=== PATIENT | male | born 1950 | race Caucasian/White ===

== ENCOUNTER 2024-10-14 04:16 | Emergency (ER) | payer OTHER, SELFPAY ==
[2024-10-14] VITALS (11 sets, daily range): BP systolic 123–183; BP diastolic 73–103; PULSE 53–76; RESP 14–19; TEMP 36.6–37.1; O2SAT 95–96; BMI 17.6
--- NOTE | 2024-10-14 04:40 | XR_ITS ---
Examination: CT brain head without contrast. 2-D sagittal coronal reconstructions Date and time of exam:October 14, 2024 0455 hrs. Indications: High blood pressure with severe headaches today CTDI: vol (mGy):54.60 DLP: (mGycm):1158 Technique: Multiple CT axial sections of the brain have been obtained, 5 mm slice thickness. Contrast has not been administered. 2-D sagittal, coronal reconstructions have been obtained Low dose protocols were performed. One or more of the following dose reduction techniques were used; automated exposure control, adjustment of the mA and/or KV according to patient size, use of iterative reconstruction technique. Findings: No significant ventricular enlargement. Intra-axial or extra-axial hemorrhage density is not seen. No mass effect or midline shift Basal cisterns are not remarkable. Fourth ventricle is midline. Cranial vault intact. Impression: Negative for acute hemorrhage, mass effect or midline shift
--- NOTE | 2024-10-14 04:40 | EKG_ITS ---
[facility] Test Date: 2024-10-14 Pat Name: FLOR AZUL Department: Room: - Gender: Male Reception Clerk: : 1950 Requested By: Mayito Cortes Order Number: [id number] Reading MD: Mayito Cortes Measurements Intervals [place] Rate: 60 P: 59 [place]: 229 QRS: -34 QRSD: 89 T: 45 QT: 395 QTc: 398 Interpretive Statements SINUS RHYTHM WITH FIRST DEGREE AV BLOCK MARKED LEFT AXIS DEVIATION [QRS AXIS < -30] Compared to ECG 08/02/2024 11:33:18 Sinus bradycardia no longer present /store/S0/[id number]/ecg/[id number].pdf
--- NOTE | 2024-10-14 04:40 | XR_ITS ---
Examination: PA chest single view Technique: Upright PA chest single view Exam date and time: October 14, 2024 0446 hrs. Indications: Onset chest pain back pain shortness of breath today Findings: Normal heart size Lungs are clear The osseous structures are intact Impression: No active disease
--- NOTE | 2024-10-14 04:41 | EDRME_ITS ---
Rapid Medical Screening Exam [facility] Arrival date/time: 10/14/24 04:16 74M with history of BPH presents to ED with 1 day of elevated BP (patient usually has normal BP and does not take meds), as well as HAUSER and back pain w/o fall/trauma. Patient has also had several days of constipation, which patient tried to relieve with fiber supplements w/o success. Patient also had some nausea, but denies vomiting, ab surgeries and dysuria. Patient notes he recently traveled abroad. Chief Complaint: General Adult/Misc Complain Vital signs: Vital Signs Temperature 97.8 F 10/14/24 04:22 Pulse Rate 60 10/14/24 04:22 Respiratory Rate 18 10/14/24 04:22 Blood Pressure 173/103 H 10/14/24 04:22 Pulse Oximetry (%) 96 10/14/24 04:22 Oxygen Delivery Method Room Air 10/14/24 04:22
--- NOTE | 2024-10-14 05:17 | PRELIM_ITS ---
CT scan of the head without intravenous contrast (axial sections with sagittal and coronal reformats) October 14, 2024 0455 hours Clinical history: HAUSER and elevated BP Findings:There is no evidence of i ntracranial hemorrhage, mass effect or midline shift. There are periventricular white matter hypodens ities, compatible with chronic small vessel ischemia. There is mild volume loss. There is atheromatou s calcification of the intracranial arteries. The calvarium is unremarkable. There is mild mucosal th ickening in the bilateral ethmoid and maxillary sinuses. The mastoid air cells and the other visuali zed paranasal sinuses are clear.Impression:No evidence of intracranial hemorrhage, mass effect or mid line shift.Periventricular chronic small vessel ischemia and volume loss. Report Electronically Venus d By: Jimmie Amanda 10/14/2024 5:16:27 AM [EST]
[2024-10-14 05:22] LABS: Basophils # (Auto) 0.1 Thou/mm3 (0.0-0.2); Basophils % (Auto) 1 % (0-2.5); Eosinophils # (Auto) 0.3 Thou/mm3 (0.0-0.5); Eosinophils % (Auto) 4 % (0-10); Immature Granulocytes % (Auto) 0 % (0-0); Monocytes # (Auto) 0.7 Thou/mm3 (0.0-0.8); Monocytes % (Auto) 10 % (0-12); Nucleated Red Blood Cell % 0 /100 WBC (0)
[2024-10-14 05:24] LABS: Hematocrit 43.5 % (41.0-53.0); Hemoglobin 15.1 g/dL (13.5-16.0); Immature Granulocytes Auto 0.02 Thou/mm3 (0.00-0.00); Lymphocytes # (Auto) 1.6 Thou/mm3 (1.0-4.8); Lymphocytes % (Auto) 23 % (10-50); Mean Corpuscular HGB Conc 34.7 g/dl (31.0-37.0); Mean Corpuscular Volume 87 fL (80-100); Neutrophils # (Auto) 4.2 Thou/mm3 (1.8-7.7); Neutrophils % (Auto) 62 % (37-80); Platelet Count 137 Thou/mm3 (140-440); RDW Standard Deviation 42.6 fL (35.1-43.9); Red Blood Count 5.03 Miln/mm3 (4.50-5.90); White Blood Count 6.9 Thou/mm3 (3.8-10.6)
[2024-10-14 05:41] LABS: Alanine Aminotransferase 15 U/L (10-49); Albumin, Serum 4.6 gm/dL (3.4-4.8); Albumin/Globulin Ratio 1.7 (1.2-2.2); Alkaline Phosphatase 57 U/L (46-116); Anion Gap 4 (7-16); Aspartate Amino Transferase 18 U/L (0-34); BUN/Creatinine Ratio 10 Ratio (12-20); Bilirubin,Total 1.7 mg/dL (0.3-1.2); Blood Urea Nitrogen 10 mg/dL (9-23); Calcium 9.6 mg/dL (8.3-10.6); Calcium (Corrected) 9.6 mg/dL (8.5-10.1); Carbon Dioxide 30.5 mMol/L (20.0-31.0); Chloride 104 mMol/L (98-107); Globulin 2.7 gm/dL (2.3-3.5); Glucose 130 mg/dL (74-106); Osmolality,Calculated 276 (275-295); Potassium 4.2 mMol/L (3.4-5.1); Sodium 138 mMol/L (136-145); Total Protein 7.3 gm/dL (5.7-8.2); Troponin I < 0.020 ng/mL (0.0-0.045); eGFR > 60 See Note
--- NOTE | 2024-10-14 06:19 | PD.EDADULT ---
ED General RME/HPI General Chief complaint: General Adult/Misc Complain Stated complaint: HIGH BP, HEADACHE, CONSTIPATION Time Seen by Provider: 10/14/24 06:21 Arrival date/time: 10/14/24 04:16 RME / HPI RME / HPI narrative: 10/14/24 04:16 74M with history of BPH presents to ED with 1 day of elevated BP (patient usually has normal BP and does not take meds), as well as HAUSER and back pain w/o fall/trauma. Patient has also had several days of constipation, which patient tried to relieve with fiber supplements w/o success. Patient also had some nausea, but denies vomiting, ab surgeries and dysuria. Patient notes he recently traveled abroad. This section includes all my notes and documentations, including HPI, PE, MDM, Procedure Notes, and PLAN. Edwar Russell MD HPI: 74-year-old male here to be evaluated with high BP at home. Does not take BP medications. Has headache. No chest pain or shortness of breath. Thinks his high BP is due to constipation. No BM for many days. No nausea or vomiting. No abdominal pain. No other complaints. ROS: Respiratory: negative except as documented in HPI. Gastrointestinal: negative except as documented in HPI. Genitourinary: negative except as documented in HPI. Musculoskeletal: negative except as documented in HPI. Skin: negative except as documented in HPI. Neurological: negative except as documented in HPI. Physical Exam: General: Alert and oriented. No acute distress. Eyes: Conjunctivae and lids clear. EOMI. PERRL. ENT: No nasal congestion. Neck: Supple. No carotid bruit. No JVD. Heart: RRR. Lungs: No respiratory distress. Good air movement. No rhonchi, wheezing, rales. Abdomen: Soft and nontender. Normal bowel sounds. No distension. No rebound or guarding. Legs: No clubbing, cyanosis, edema. Skin: Warm and dry. Neuro: Alert and oriented X 3. Cranial Nerves II-XII grossly intact. No peripheral motor deficits. I reviewed all diagnostic test results. My interpretation of the EKG is sinus rhythm with nonspecific ST-T changes. My interpretation of the chest x-ray is no acute findings. My interpretation of the KUB is constipation. My review of the head CT report is no acute findings. Blood tests and urine tests are unremarkable. At this point, diagnoses include high BP and constipation. Patient was treated here with oral clonidine 0.2 mg. Significant improvement noted subjectively and objectively. Recommended more outpatient care and workup. Based on my best medical judgment, made decision no further evaluation or treatment indicated at this time. Patient understands and agrees to the discharge instructions customized and printed, see below. Discharge instructions from Dr. Russell printed for you: -After evaluation, there is no life-threatening condition. Such as stroke or brain tumor or aneurysm. -Take clonidine 0.1 mg 2X (8-12 hours) as needed for high SBP (higher number of BP). One pill if SBP > 140 and two pills if SBP > 160. ?For constipation: Take Senokot S (not plain Senokot, OTC so prescription not needed), two to four pills, at bedtime as needed.? And milk of magnesia as needed. To help current constipation and prevent future constipation, increase oral fluid because dehydration cause severe constipation.? Maintain clear urine.? If dark or yellow, increase oral fluid. And every day, increase fresh fruits and fresh vegetables and physical exercise. ?See a private doctor on 10/15/24 for recheck and further care. Ask to help you stay healthy, with good management of your BP, helping you to prevent future heart attacks and strokes, and with regular health maintenance. Ask to review all diagnostic tests from today, including official radiology reports, to make sure you receive all necessary follow-ups and monitoring. To make sure there is no serious underlying abdominal condition, ask to help you get more care not available here in the ER.? Such as EGD or scoping of your stomach, colonoscopy or scoping the colon, and a referral to see a forensic science examiner. ?Seek immediate medical care with worsening or with any concerns. Edwar Russell MD Related Data Home Medications ?Medication ?Instructions ?Recorded ?Confirmed escitalopram oxalate 10 mg tablet 10 mg PO QDAY 05/01/19 08/02/24 (Lexapro) ciprofloxacin HCl 500 mg tablet 500 mg PO BID 08/02/24 08/02/24 (Cipro) tadalafil 5 mg tablet 5 mg PO DAILY 08/02/24 08/02/24 Previous Rx's ?Medication ?Instructions ?Recorded clonidine HCl 0.1 mg tablet 0.1 mg PO BID #60 tabs 10/14/24 magnesium hydroxide 2,400 mg/10 mL 30 ml PO QDAY PRN constipation #60 10/14/24 oral suspension (Milk Of Magnesia mL Concentrated) sennosides 8.6 mg-docusate sodium 2 tab-cap (2 x 8.6-50 mg) PO 10/14/24 50 mg tablet (Senokot-S) .bedtime PRN constipation #20 tabs Allergies Allergy/AdvReac Type Severity Reaction Status Date / Time No Known Allergies Allergy Verified 08/02/24 10:49 Review of Systems Review of Systems Systems Reviewed: All systems reviewed, normal except as documented Past Medical History Past Medical History RESPIRATORY: Positive Sleep Apnea GASTROINTESTINAL: Positive Gastrointestinal Disorders, Hemorrhoids and Obesity GENITOURINARY: Positive Genitourinary Disorders and Benign Prostatic Hyperplasia MUSCULOSKELETAL: Positive Arthritis HEMATOLOGIC: Positive Leukemia (Chronic, on remision 12 yrs) PSYCHO/SOCIAL: Positive Anxiety OTHER HISTORY: Positive Hospitalization (surgery), Measles and Mumps Family History FAMILY HISTORY: Positive Family Cancer and Family Surgery Surgical History SURGICAL: Positive Angiogram (coronary. clean no obstructions) Social History SMOKING STATUS: Never smoker ED Exam Narrative Physical exam: As noted in HPI Course Quality Measures none Orders Category Date Time Status EKG (ED ONLY) *Do not use* NOW Care 10/14/24 04:[address] head/brain wo con Stat Exams 10/14/24 04:40 Completed EKG (ED Only) Stat Exams 10/14/24 04:40 Draft KUB [XR abdomen 1V] Stat Exams 10/14/24 06:48 Completed XR chest 1V portable Stat Exams 10/14/24 04:40 Completed CBC Stat Lab 10/14/24 05:10 Completed Comprehensive Metabolic Panel Stat Lab 10/14/24 05:10 Completed Drug Screen,Urine Stat Lab 10/14/24 06:55 Completed Troponin I Stat Lab 10/14/24 05:10 Completed Urinalysis Stat Lab 10/14/24 06:55 Completed cloNIDine HCL [Catapres] Med 10/14/24 06:50 Discontinued 0.2 mg PO X1 ONE Vital Signs Vital signs: Vital Signs Temperature 97.8 F 10/14/24 04:22 Pulse Rate 60 10/14/24 04:22 Respiratory Rate 18 10/14/24 04:22 Blood Pressure 173/103 H 10/14/24 04:22 Pulse Oximetry (%) 96 10/14/24 04:22 Oxygen Delivery Method Room Air 10/14/24 04:22 Pulse ox is 96% on room air which is adequate. [facility] Patient data External records reviewed:: [facility] previous records (I reviewed H&P on 08/03/2024 ) Clinical information provided by:: patient Social determinants that could affect healthcare access:: none Patient has the following chronic illnesses:: BPH How is presenting disease/condition affected by chronic disease/condition?: exacerbated by Evaluation data The following diagnostics were reviewed and interpreted by me:: lab results, radiology exam(s) and EKG tracing(s) Lab and/or radiology exams considered but not ordered:: None Interpretation Summary: Ordering Physician: Mayito Cortes PA-C Date of Service: 10/14/24 Procedure(s): XR chest 1V portable Accession Number(s): [id number] cc: Madonna Ovalles NP; Jorge Casillas MD; Mayito Cortes PA-C~ Examination: PA chest single view Technique: Upright PA chest single view Exam date and time: October 14, 2024 0446 hrs. Indications: Onset chest pain back pain shortness of breath today Findings: Normal heart size Lungs are clear The osseous structures are intact Impression: No active disease Dictated By: Jorge Casillas MD Signed By: <Electronically signed by Jorge Casillas MD in OV> 10/14/24 0740 Ordering Physician: Mayito Cortes PA-C Date of Service: 10/14/24 Procedure(s): CT head/brain wo con Accession Number(s): [id number] cc: Madonna Ovalles NP; Jorge Casillas MD; Mayito Cortes PA-C~ Examination: CT brain head without contrast. 2-D sagittal coronal reconstructions Date and time of exam:October 14, 2024 0455 hrs. Indications: High blood pressure with severe headaches today CTDI: vol (mGy):54.60 DLP: (mGycm):1158 Technique: Multiple CT axial sections of the brain have been obtained, 5 mm slice thickness. Contrast has not been administered. 2-D sagittal, coronal reconstructions have been obtained Low dose protocols were performed. One or more of the following dose reduction techniques were used; automated exposure control, adjustment of the mA and/or KV according to patient size, use of iterative reconstruction technique. Findings: No significant ventricular enlargement. Intra-axial or extra-axial hemorrhage density is not seen. No mass effect or midline shift Basal cisterns are not remarkable. Fourth ventricle is midline. Cranial vault intact. Impression: Negative for acute hemorrhage, mass effect or midline shift Dictated By: Jorge Casillas MD Signed By: <Electronically signed by Jorge Casillas MD in OV> 10/14/24 0735 Ordering Physician: Edwar Russell MD Date of Service: 10/14/24 Procedure(s): XR abdomen 1V Accession Number(s): [id number] cc: Madonna Ovalles DIRECTOR OF INFECTION PREVENTION; Edwar Russell MD; Jorge Casillas MD~ Examination: Abdomen AP single view Technique: AP portable supine abdomen, single view Exam date and time: October 14, 2024 0655 hrs. Indications: Abdominal pain and constipation today Findings: Moderate stool throughout the colon There are multiple air distended small bowel loops No free air The osseous structures are intact Mild prominence left ventricle Impression: There are multiple air distended small bowel loops, clinical correlation advised, consider CT scan abdomen pelvis post intravenous contrast follow-up Dictated By: Jorge Casillas MD Signed By: <Electronically signed by Jorge Casillas MD in OV> 10/14/24 0741 Medications Medications considered but not ordered:: None Medication administrations:: Medication Administration History Discontinued Medications Clonidine (Clonidine Hcl 0.1 Mg Tablet) 0.2 mg PO X1 ONE Stop: 10/14/24 06:51 Last Admin: 10/14/24 07:07 Dose: 0.2 mg Documented By: SF See above Consultations Consultation(s) initiated? (list below): No Diagnosis Differential Diagnosis ED Complaint MDM: Headache, viral illness, stroke, brain tumor Most likely diagnosis given after review of the tests above:: High BP and constipation Admission Indicated Admission indicated?: not indicated Explain why admission is indicated or not indicated:: No criteria for admission Admission Request Was there a request for admission?: No Disposition Plan Disposition Plan: Discharge Discharge Attestation Discharge Attestation: The patient and all family members were given an opportunity to ask questions and understood the discharge instructions. Discharge instructions specifically effects, indications for sooner follow up or return to the emergency department, and the expected course of current diagnosis. Patient condition: Stable Medical Decision Making Differential Diagnosis Differential Diagnosis: Headache, viral illness, stroke, brain tumor Lab Data 10/14/24 05:10 10/14/24 05:10 Labs: Lab Results 10/14/24 10/14/24 Range/Units 05:10 06:55 WBC 6.9 (3.8-10.6) Thou/mm3 RBC 5.03 (4.50-5.90) Miln/mm3 Hgb 15.1 (13.5-16.0) g/dL Hct 43.5 (41.0-53.0) % MCV 87 (80-100) fL MCH 30.0 (25.0-35.0) pg MCHC 34.7 (31.0-37.0) g/dl RDW Std Deviation 42.6 (35.1-43.9) fL Plt Count 137 L (140-440) Thou/mm3 Neut % (Auto) 62 (37-80) % Lymph % (Auto) 23 (10-50) % [place] % (Auto) 10 (0-12) % Eos % (Auto) 4 (0-10) % Baso % (Auto) 1 (0-2.5) % Neut # (Auto) 4.2 (1.8-7.7) Thou/mm3 Lymph # (Auto) 1.6 (1.0-4.8) Thou/mm3 [place] # (Auto) 0.7 (0.0-0.8) Thou/mm3 Eos # (Auto) 0.3 (0.0-0.5) Thou/mm3 Baso # (Auto) 0.1 (0.0-0.2) Thou/mm3 Immature Gran # (Auto) 0.02 H (0.00-0.00) Thou/mm3 Absolute Nucleated RBC 0.00 (0.00-0.00) Thou/mm3 Immature Gran % 0 (0-0) % Nucleated RBC % 0 (0) /100 WBC Sodium 138 (136-145) mMol/L Potassium 4.2 (3.4-5.1) mMol/L Chloride 104 (98-107) mMol/L Carbon Dioxide 30.5 (20.0-31.0) mMol/L Anion Gap 4 L (7-16) BUN 10 (9-23) mg/dL Creatinine 1.0 (0.6-1.3) mg/dL Estim Creat Clear Calc Not Performed. eGFR > 60 (60 - ) See Note BUN/Creatinine Ratio 10 L (12-20) Ratio Glucose 130 H (74-106) mg/dL Calculated Osmolality 276 (275-295) Calcium 9.6 (8.3-10.6) mg/dL Corrected Calcium 9.6 (8.5-10.1) mg/dL Total Bilirubin 1.7 H (0.3-1.2) mg/dL AST 18 (0-34) U/L ALT 15 (10-49) U/L Alkaline Phosphatase 57 (46-116) U/L Troponin I < 0.020 (0.0-0.045) ng/mL Total Protein 7.3 (5.7-8.2) gm/dL Albumin 4.6 (3.4-4.8) gm/dL Globulin 2.7 (2.3-3.5) gm/dL Albumin/Globulin Ratio 1.7 (1.2-2.2) Ur Collection Type Clean Catch Urine Color Colorless A (Lt Yel-Yel) Urine Clarity Clear (Clear/Hazy) Urine pH 7.0 (5.0-7.0) Ur Specific [place] 1.004 (1.001-1.035) Urine Protein Negative (Neg - Trace) Urine Glucose (UA) Negative (Negative) Urine Ketones Negative (Negative) Urine Blood Negative (Negative) Urine Nitrite Negative (Negative) Urine Bilirubin Negative (Negative) Urine Urobilinogen (Auto) Negative (0.0-1.0) mg/dL Ur Leukocyte Esterase Negative (Negative) Urine RBC < 1 (0-3) /hpf Urine WBC < 1 (0-5) /hpf Ur Squamous Epith Cells 0 (0-5) /hpf Urine Bacteria None (None) Urine Opiates Screen Negative (Negative) Urine Fentanyl Screen Negative (Negative) Ur Barbiturates Screen Negative (Negative) U Amphetamin/Meth Scrn Negative (Negative) U Benzodiazepines Scrn Negative (Negative) U Cocaine Metab Screen Negative (Negative) U Marijuana (THC) Screen Negative (Negative) Discharge Plan Plan Patient Disposition: HOME (Self Care) Prescriptions/Referrals Prescriptions/Med Rec: New clonidine HCl 0.1 mg tablet 0.1 mg PO BID Qty: 60 0RF sennosides-docusate sodium [Senokot-S] 8.6-50 mg tablet 2 tab-cap PO .bedtime PRN (Reason: constipation) Qty: 20 0RF magnesium hydroxide [Milk Of Magnesia Concentrated] 2,400 mg/10 mL suspension 30 ml PO QDAY PRN (Reason: constipation) Qty: 60 0RF No Action escitalopram oxalate [Lexapro] 10 mg tablet 10 mg PO QDAY ciprofloxacin HCl [Cipro] 500 mg Tablet 500 mg PO BID tadalafil 5 mg tablet 5 mg PO DAILY Patient Comments: take 1 tablet by mouth once daily if needed Referrals: Madonna Ovalles, DIRECTOR OF INFECTION PREVENTION [Primary Care Provider] - In 1 week Problem List Clinical Impression: Elevated BP without diagnosis of hypertension, Constipation Patient/Caregiver Discharge Instructions Discharge Activity: activity as tolerated Education Materials: ED Constipation (Adult), ED Hypertension, To Be Confirmed Additional Instructions: Discharge instructions from Dr. Russell printed for you: -After evaluation, there is no life-threatening condition. Such as stroke or brain tumor or aneurysm. -Take clonidine 0.1 mg 2X (8-12 hours) as needed for high SBP (higher number of BP). One pill if SBP > 140 and two pills if SBP > 160. ?For constipation: Take Senokot S (not plain Senokot, OTC so prescription not needed), two to four pills, at bedtime as needed.? And milk of magnesia as needed. To help current constipation and prevent future constipation, increase oral fluid because dehydration cause severe constipation.? Maintain clear urine.? If dark or yellow, increase oral fluid. And every day, increase fresh fruits and fresh vegetables and physical exercise. ?See a private doctor on 10/15/24 for recheck and further care. Ask to help you stay healthy, with good management of your BP, helping you to prevent future heart attacks and strokes, and with regular health maintenance. Ask to review all diagnostic tests from today, including official radiology reports, to make sure you receive all necessary follow-ups and monitoring. To make sure there is no serious underlying abdominal condition, ask to help you get more care not available here in the ER.? Such as EGD or scoping of your stomach, colonoscopy or scoping the colon, and a referral to see a forensic science examiner. ?Seek immediate medical care with worsening or with any concerns. Print Language: Croatian Stand Alone Forms: Debbie Award Info., Patient Portal Info Letter
--- NOTE | 2024-10-14 06:48 | XR_ITS ---
Examination: Abdomen AP single view Technique: AP portable supine abdomen, single view Exam date and time: October 14, 2024 0655 hrs. Indications: Abdominal pain and constipation today Findings: Moderate stool throughout the colon There are multiple air distended small bowel loops No free air The osseous structures are intact Mild prominence left ventricle Impression: There are multiple air distended small bowel loops, clinical correlation advised, consider CT scan abdomen pelvis post intravenous contrast follow-up
[2024-10-14] MEDS: cloNIDine HCL 0.1 MG TABLET 0.2 MG PO (07:07)
[2024-10-14 07:08] LABS: Collection Type, Urine Clean Catch; Squamous Epithelial Cell,Urine 0 /hpf (0-5)
[2024-10-14 07:13] LABS: Bilirubin,Urine Negative (Negative); Blood,Urine Negative (Negative); Clarity,Urine Clear (Clear/Hazy); Color,Urine Colorless (Lt Yel-Yel); Glucose, Urine Negative (Negative); Ketones,Urine Negative (Negative); Leukocyte Esterase,Urine Negative (Negative); Nitrite,Urine Negative (Negative); Protein,Urine Negative (Neg - Trace); RBC,Urine < 1 /hpf (0-3); Specific Gravity,Urine 1.004 (1.001-1.035); Urobilinogen,Urine Negative mg/dL (0.0-1.0); WBC,Urine < 1 /hpf (0-5)
[2024-10-14 07:18] LABS: Amphetamine/Methamp Scrn,U Negative (Negative); Barbiturate Screen,Urine Negative (Negative); Benzodiazepines Screen,Urine Negative (Negative); Benzoylecgonine Screen, Ur Negative (Negative); Fentanyl Screen,Urine Negative (Negative); Opiate Screen,Urine Negative (Negative); THC Screen,Urine Negative (Negative)
== END 2024-10-14 09:12 | disposition home or self-care (01) ==
PROVIDERS: Physician Assistant; Emergency Provider Emergency Medicine; PCP Nurse Practitioner Family
DX: R03.0 Elevated blood-pressure reading, without diagnosis of hypertension (principal); K59.00 Constipation, unspecified; R51.9 Headache, unspecified; R07.9 Chest pain, unspecified; M54.9 Dorsalgia, unspecified; R06.02 Shortness of breath; I44.0 Atrioventricular block, first degree
CPT/HCPCS: 36415; 70450; 71045; 74018; 80053; 80307; 81001; 84484; 85025; 93005; 99284; A9270

== ENCOUNTER → 2024-10-19 | Outpatient (BNVA) | payer OTHER, SELFPAY | END | disposition home or self-care (01) | PROVIDERS: PCP Family Medicine; Referring Provider Family Medicine; Visit Provider Urology | DX: N40.1 Benign prostatic hyperplasia with lower urinary tract symptoms (principal); N13.8 Other obstructive and reflux uropathy; N52.9 Male erectile dysfunction, unspecified; Z80.42 Family history of malignant neoplasm of prostate; I10 Essential (primary) hypertension; F32.A Depression, unspecified | CPT/HCPCS: 81003; 99212; G0463 ==

== ENCOUNTER → 2024-10-29 | Outpatient (BNVA) | payer OTHER, SELFPAY | END | disposition home or self-care (01) | PROVIDERS: PCP Family Medicine; Referring Provider Family Medicine; Visit Provider Urology | DX: Z76.89 Persons encountering health services in other specified circumstances (principal) | CPT/HCPCS: 99212; G0463 ==

== ENCOUNTER → 2025-01-24 | Outpatient (BNVA) | payer OTHER, SELFPAY | END | disposition home or self-care (01) | PROVIDERS: PCP Family Medicine; Referring Provider Family Medicine; Visit Provider Urology | DX: N40.1 Benign prostatic hyperplasia with lower urinary tract symptoms (principal); N13.8 Other obstructive and reflux uropathy; N52.9 Male erectile dysfunction, unspecified; R97.20 Elevated prostate specific antigen [PSA]; F32.A Depression, unspecified; Z80.42 Family history of malignant neoplasm of prostate | CPT/HCPCS: 81003; 99212; G0463 ==

== ENCOUNTER → 2025-02-16 | Outpatient (CLI) | payer OTHER, SELFPAY ==
[2025-02-16 09:30] LABS: Collection Type, Urine Clean Catch
[2025-02-16 09:52] LABS: Basophils # (Auto) 0.1 Thou/mm3 (0.0-0.2); Basophils % (Auto) 1 % (0-2.5); Eosinophils # (Auto) 0.2 Thou/mm3 (0.0-0.5); Eosinophils % (Auto) 4 % (0-10); Hematocrit 41.9 % (41.0-53.0); Hemoglobin 14.8 g/dL (13.5-16.0); Immature Granulocytes % (Auto) 0 % (0-0); Immature Granulocytes Auto 0.01 Thou/mm3 (0.00-0.00); Lymphocytes # (Auto) 1.6 Thou/mm3 (1.0-4.8); Lymphocytes % (Auto) 28 % (10-50); Mean Corpuscular HGB Conc 35.3 g/dl (31.0-37.0); Mean Corpuscular Hemoglobin 30.5 pg (25.0-35.0); Mean Corpuscular Volume 86 fL (80-100); Monocytes # (Auto) 0.6 Thou/mm3 (0.0-0.8); Monocytes % (Auto) 10 % (0-12); Neutrophils # (Auto) 3.2 Thou/mm3 (1.8-7.7); Neutrophils % (Auto) 56 % (37-80); Nucleated Red Blood Cell % 0 /100 WBC (0); Platelet Count 139 Thou/mm3 (140-440); Red Blood Count 4.86 Miln/mm3 (4.50-5.90); White Blood Count 5.7 Thou/mm3 (3.8-10.6)
[2025-02-16 10:14] LABS: Glucose Estimated Average 111 mg/dL (80-131); Hemoglobin A1C 5.5 % Hgb (4.8-6.0)
[2025-02-16 10:39] LABS: Bilirubin,Urine Negative (Negative); Blood,Urine Negative (Negative); Clarity,Urine Clear (Clear/Hazy); Color,Urine Lt-Yellow (Lt Yel-Yel); Glucose, Urine Negative (Negative); Ketones,Urine Negative (Negative); Leukocyte Esterase,Urine Negative (Negative); Nitrite,Urine Negative (Negative); PH,Urine 6.5 (5.0-7.0); Protein,Urine Negative (Neg - Trace); RBC,Urine 1 /hpf (0-3); Specific Gravity,Urine 1.016 (1.001-1.035); Squamous Epithelial Cell,Urine < 1 /hpf (0-5); Urobilinogen,Urine Negative mg/dL (0.0-1.0); WBC,Urine 1 /hpf (0-5)
[2025-02-16 10:44] LABS: Alanine Aminotransferase 17 U/L (10-49); Albumin, Serum 4.3 gm/dL (3.4-4.8); Albumin/Globulin Ratio 1.6 (1.2-2.2); Alkaline Phosphatase 52 U/L (46-116); Anion Gap 9 (7-16); Aspartate Amino Transferase 19 U/L (0-34); BUN/Creatinine Ratio 14 Ratio (12-20); Bilirubin,Total 1.3 mg/dL (0.3-1.2); Blood Urea Nitrogen 14 mg/dL (9-23); Calcium 10.1 mg/dL (8.3-10.6); Calcium (Corrected) 10.1 mg/dL (8.5-10.1); Carbon Dioxide 29.4 mMol/L (20.0-31.0); Cardiac Risk Estimate 3.5 RATIO (4.0-6.7); Chloride 106 mMol/L (98-107); Cholesterol 190 mg/dL (132-200); Globulin 2.7 gm/dL (2.3-3.5); Glucose 114 mg/dL (74-106); HDL Cholesterol 55 mg/dL (40-60); LDL Cholesterol,Calculated 108 mg/dL (0-130); Osmolality,Calculated 288 (275-295); Potassium 4.6 mMol/L (3.4-5.1); Sodium 144 mMol/L (136-145); Thyroid Stimulating Hormone 1.26 uIU/mL (0.55-4.78); Triglycerides 134 mg/dL (30-150); eGFR > 60 See Note
[2025-02-16 12:04] LABS: PSA Medicare Annual Scrn 5.49 ng/mL (0-4.00)
== END | disposition home or self-care (01) ==
LOC: COPL 08:41
PROVIDERS: PCP Family Medicine; Referring Provider Nurse Practitioner Family; Visit Provider Nurse Practitioner Family
DX: E78.1 Pure hyperglyceridemia (principal); R73.03 Prediabetes; D69.6 Thrombocytopenia, unspecified; Z85.6 Personal history of leukemia
CPT/HCPCS: 36415; 80053; 80061; 81001; 83036; 84153; 84443; 85025; G0103

== ENCOUNTER → 2025-03-01 | Outpatient (BNVA) | payer OTHER, SELFPAY | END | disposition home or self-care (01) | PROVIDERS: PCP Family Medicine; Referring Provider Family Medicine; Visit Provider Urology | DX: N42.89 Other specified disorders of prostate (principal); N40.1 Benign prostatic hyperplasia with lower urinary tract symptoms; N13.8 Other obstructive and reflux uropathy; Z80.42 Family history of malignant neoplasm of prostate; Z87.891 Personal history of nicotine dependence | CPT/HCPCS: 55700; 76942; 81003; 96372; A4649; J1580; J3490; A9270 ==

== ENCOUNTER → 2025-06-28 | Outpatient (CLI) | payer OTHER, SELFPAY ==
[2025-06-28 11:49] LABS: Prostate Specific Antigen 4.96 ng/mL (0-4.00)
== END | disposition home or self-care (01) ==
LOC: COPL 10:08
PROVIDERS: PCP Nurse Practitioner Family; Referring Provider Urology; Visit Provider Urology
DX: R97.20 Elevated prostate specific antigen [PSA] (principal)
CPT/HCPCS: 36415; 84153

== ENCOUNTER → 2025-07-04 | Outpatient (BNVA) | payer OTHER, SELFPAY | END | disposition home or self-care (01) | PROVIDERS: PCP Family Medicine; Referring Provider Family Medicine; Visit Provider Urology | DX: N40.1 Benign prostatic hyperplasia with lower urinary tract symptoms (principal); N13.8 Other obstructive and reflux uropathy; I10 Essential (primary) hypertension; R73.03 Prediabetes; E66.9 Obesity, unspecified; Z68.36 Body mass index [BMI] 36.0-36.9, adult; Z80.42 Family history of malignant neoplasm of prostate | CPT/HCPCS: 81003; 99212; G0463 ==